=== PATIENT | female | born 1955 | race Caucasian/White ===

== ENCOUNTER 2016-10-25 06:38 | Day surgery (SDC) | payer OTHER ==
[2016-10-24 11:33] VITALS: BMI 35.4
[~2016-10-25 06:38] MED LIST: LACTATED RINGERS 1,000 ML IV SCH
[2016-10-25] MEDS ORDERED: LIDOCAINE 1% 20 ML VIAL (10MG/ML) FOR IV START INTRADERMA ONE (06:41)
[2016-10-25 06:54] VITALS: TEMP 97.3
[2016-10-25 06:55] LABS: Glucose,Whole Blood 107 mg/dL (75-99)
--- NOTE | 2016-10-25 07:38 | P.PCN ---
Date of Procedure: 10/25/16 Procedure(s) Performed: . PROCEDURE 1. Cervical epidural steroid injection under fluoroscopic guidance, C7-T1 2. Cervical epidurogram. PREOPERATIVE DIAGNOSIS: 1- Cervical Degenerative Disc Diseases 2- Cervical radiculopathy., 3-cervical spondylosis with cervical Facet arthropathy without . myelopathy 4- cervical spinal stenosis POSTOPERATIVE DIAGNOSIS: : Same as preoperative diagnosis ANESTHESIA: Local anesthesia with 1% lidocaine and IV sedation with Versed 2 mg and Fentanyl 50 mcg. EBL 0 PROCEDURE INDICATION: The patient with neck pain and radiculitis unresponsive to conservative treatment consents for procedure. PROCEDURE DESCRIPTION / TECHNIQUE: The patient was seen and identified in the preoperative area. Risks, benefits, complications, including but not limited to infections ,bleeding , allergic reactions to the medications ,and not complete pain releife, and alternatives were discussed with the patient, the patient agreed to proceed with the procedure and signed the consent. Patient was taken to the OR and time out was completed. The patient was placed in the prone position on the procedure table. A pillow was placed under the patients chest to increase the cervical interlaminar space. The cervical area was prepped and draped in the usual sterile fashion. Vital signs were closely monitored during the procedure. Conscious sedation was used during the procedure to decrease patients anxiety. Using anterior-posterior fluoroscopy, the C7-T1 interlaminar space was identified and the skin over this site was marked and then infiltrated with 1% lidocaine subcutaneously. Subsequently, a 20-gauge 3-1/2-inch Tuohy epidural needle was inserted and advanced toward the epidural space by means of the hanging-drop technique and guided by AP and lateral fluoroscopy. The correct needle position in the epidural space was verified with the injection of 2 mL of the water soluble contrast dye Isovue-180 and observing an excellent epidurogram with the epidural spread of the dye, after negative aspiration for blood and CSF and in the absence of paresthesias. Again after negative aspiration, mixture containing 20 mg Dexamethasone and 2 ml of preservative- free normal saline injected and a washout of epidurogram was seen. Needle was withdrawn intact, skin was cleansed, and bandages were applied. Complications= none. Disposition= patient was placed in supine position and transferred to the recovery room area in stable condition and there was no evidence of upper or lower extremity motor or sensory deficit after the procedure patient was discharged from recovery room after discharge criteria met and home discharge instructions was given by the staff and patient will follow with the pain clinic in 2-4 weeks
[2016-10-25] MEDS ORDERED: IV FLUID CONTINUATION 1,000 ML IV ONE ×2 (07:47)
[2016-10-25 07:53] VITALS: RESP 18
[2016-10-25 07:59] LABS: Glucose,Whole Blood 118 mg/dL (75-99)
[2016-10-25 08:05] VITALS: BP 135/84; PULSE 72
--- NOTE | 2016-10-25 08:46 | FL ---
EXAMINATION TYPE: FL guided pain mgmt statistic DATE OF EXAM: 10/25/2016 7:41 AM FLUOROSCOPY Fluoroscopy time of 27 seconds was used during cervical epidural injection. 1 image/s document/s th e procedure.
[2016-10-25] MEDS ORDERED: MIDAZOLAM 2 MG/2 ML VIAL ONE (09:19)
[2016-10-25] MEDS ORDERED: DEXAMETHASONE SOD PHOS (MDV) 100 MG/10 ML VIAL ONE (09:19)
[2016-10-25] MEDS ORDERED: fentaNYL (PF) 50 MCG/ML 2 ML AMP ONE (09:19)
== END 2016-10-25 08:12 | disposition home or self-care (01) ==
LOC: ORPAIN 06:38
PROVIDERS: ATTEND Specialist
DX: M50.10 Cervical disc disorder with radiculopathy, unspecified cervical region (principal); M47.22 Other spondylosis with radiculopathy, cervical region; M46.92 Unspecified inflammatory spondylopathy, cervical region; M48.02 Spinal stenosis, cervical region
CPT/HCPCS: 62320; J2250; J3010; J1100; 62321

== ENCOUNTER 2016-11-26 06:27 | Day surgery (SDC) | payer OTHER ==
[2016-11-25 12:06] VITALS: BMI 34.5
[2016-11-26] MEDS ORDERED: LIDOCAINE 1% 20 ML VIAL (10MG/ML) FOR IV START INTRADERMA ONE (06:33)
[2016-11-26 06:41] VITALS: RESP 16; TEMP 97.5
[2016-11-26 06:49] LABS: Glucose,Whole Blood 95 mg/dL (75-99)
[2016-11-26] MEDS ORDERED: DEXAMETHASONE SOD PHOS (MDV) 100 MG/10 ML VIAL ONE (07:10)
[2016-11-26] MEDS ORDERED: fentaNYL (PF) 50 MCG/ML 2 ML AMP ONE (07:10)
[2016-11-26] MEDS ORDERED: MIDAZOLAM 2 MG/2 ML VIAL ONE (07:10)
[2016-11-26] MEDS ORDERED: IOHEXOL 180 MG/ML 1 ML ML ONE (07:10)
--- NOTE | 2016-11-26 07:32 | P.PCN ---
Date of Procedure: 11/26/16 Procedure(s) Performed: . PROCEDURE 1. Cervical epidural steroid injection under fluoroscopic guidance, C6-7 # 3 2. Cervical epidurogram. PREOPERATIVE DIAGNOSIS: 1- Cervical Degenerative Disc Diseases 2- Cervical radiculopathy., 3-cervical spinal stenosis POSTOPERATIVE DIAGNOSIS: : 1- Cervical Degenerative Disc Diseases , 2- Cervical radiculopathy. 3-,cervical spinal stenosis ANESTHESIA: Local anesthesia with 1% lidocaine3 ml and IV sedation with Versed 2 mg and Fentanyl 50 mcg. EBL 0 PROCEDURE INDICATION: The patient with neck pain and radiculitis unresponsive to conservative treatment consents for procedure. PROCEDURE DESCRIPTION / TECHNIQUE: The patient was seen and identified in the preoperative area. Risks, benefits, complications, including but not limited to infections ,bleeding , allergic reactions to the medications ,and not complete pain releife, and alternatives were discussed with the patient, the patient agreed to proceed with the procedure and signed the consent. Patient was taken to the OR and time out was completed. The patient was placed in the prone position on the procedure table. A pillow was placed under the patients chest to increase the cervical interlaminar space. The cervical area was prepped and draped in the usual sterile fashion. Vital signs were closely monitored during the procedure. Conscious sedation was used during the procedure to decrease patients anxiety. Using anterior-posterior fluoroscopy, the C6-7interlaminar space was identified and the skin over this site was marked and then infiltrated with 1% lidocaine subcutaneously. Subsequently, a 20-gauge 3-1/2-inch Tuohy epidural needle was inserted and advanced toward the epidural space by means of the ``hanging-drop technique and guided by AP and lateral fluoroscopy. The correct needle position in the epidural space was verified with the injection of 2 mL of the water soluble contrast dye Isovue-180 and observing an excellent epidurogram with the epidural spread of the dye, after negative aspiration for blood and CSF and in the absence of paresthesias. Again after negative aspiration, mixture containing 20 mg Dexamethasone and 2 ml of preservative-free normal saline injected and a washout of epidurogram was seen. Needle was withdrawn intact, skin was cleansed, and bandages were applied. Complications= none. Disposition= patient was placed in supine position and transferred to the recovery room area in stable condition and there was no evidence of upper or lower extremity motor or sensory deficit after the procedure patient was discharged from recovery room after discharge criteria met and home discharge instructions was given by the staff and patient will follow with spine surgeon for evaluation regarding her neck pain and numbness in the upper extremity, today was the third cervical epidural steroid injection, and patient reported that she continued to have pain, and patient will discuss the surgical options with Dr. Simpson
[2016-11-26 08:00] VITALS: BP 146/82; PULSE 77
[2016-11-26] MEDS ORDERED: IV FLUID CONTINUATION 1,000 ML IV ONE (08:00)
--- NOTE | 2016-11-26 08:16 | FL ---
EXAMINATION TYPE: FL guided pain mgmt statistic DATE OF EXAM: 11/26/2016 7:33 AM HISTORY: Flouroscopy time 7 seconds of fluoroscopy provided. IMPRESSION: 1. Fluoroscopy time.
== END 2016-11-26 08:15 | disposition home or self-care (01) ==
LOC: ORPAIN 06:27
PROVIDERS: ATTEND Specialist
DX: M48.02 Spinal stenosis, cervical region (principal); M50.10 Cervical disc disorder with radiculopathy, unspecified cervical region; F41.9 Anxiety disorder, unspecified; E11.9 Type 2 diabetes mellitus without complications; E03.9 Hypothyroidism, unspecified
CPT/HCPCS: 62321; J2250; Q9965; J3010; J1100

== ENCOUNTER → 2017-11-18 | Outpatient (CLI) | payer OTHER ==
[2017-11-18 19:20] LABS: Cholesterol 152 mg/dL (<200); HDL Cholesterol 67 mg/dL (40-60); LDL Cholesterol,Calculated 70 mg/dL (0-99); Triglycerides 76 mg/dL (<150)
[2017-11-19 04:32] LABS: Hemoglobin A1C 8.9 % (4.0-6.0)
== END | disposition home or self-care (01) ==
LOC: MMGSC 16:15
PROVIDERS: ATTEND Family Medicine
DX: E78.5 Hyperlipidemia, unspecified (principal); E11.9 Type 2 diabetes mellitus without complications
CPT/HCPCS: 36415; 80061; 83036

== ENCOUNTER → 2018-01-19 | Outpatient (CLI) | payer OTHER ==
[2018-01-19 20:22] LABS: Albumin 3.8 g/dL (3.5-5.0); Calcium 9.7 mg/dL (8.4-10.2); Magnesium 1.7 mg/dL (1.6-2.3); Potassium 4.7 mmol/L (3.5-5.1); Total Bilirubin 1.5 mg/dL (0.2-1.3); Total Protein 6.3 g/dL (6.3-8.2)
[2018-01-19 21:15] LABS: Basophils # (A) 0.1 k/uL (0-0.2); Basophils % (A) 1 %; Eosinophils # (A) 0.1 k/uL (0-0.7); Eosinophils % (A) 2 %; HCT 39.2 % (34.0-46.0); HGB 12.4 gm/dL (11.4-16.0); Hypochromasia Slight; Lymphocytes # (A) 1.3 k/uL (1.0-4.8); Lymphocytes % (A) 15 %; MCH 29.8 pg (25.0-35.0); MCHC 31.6 g/dL (31.0-37.0); MCV 94.1 fL (80.0-100.0); Mean Platelet Volume 8.8; Monocytes # (A) 0.3 k/uL (0-1.0); Monocytes % (A) 4 %; Neutrophils # (A) 6.6 k/uL (1.3-7.7); Neutrophils % (A) 78 %; Platelet Count 332 k/uL (150-450); RBC 4.17 m/uL (3.80-5.40); RDW 13.1 % (11.5-15.5); WBC 8.4 k/uL (3.8-10.6)
== END | disposition home or self-care (01) ==
LOC: MMGSC 12:26
PROVIDERS: ATTEND Family Medicine
DX: R11.0 Nausea (principal); R19.4 Change in bowel habit
CPT/HCPCS: 36415; 80053; 82150; 83690; 83735; 85025

== ENCOUNTER → 2018-05-26 | Outpatient (CLI) | payer OTHER ==
--- NOTE | 2018-05-26 09:36 | MR ---
EXAMINATION TYPE: MR knee RT wo con DATE OF EXAM: 05/26/2018 COMPARISON: Outside radiographs of the right knee dated 03/05/2018 HISTORY: Inner right knee pain for 2 years increasing in severity for the last 8-10 months. No prior history of knee surgery TECHNIQUE: Multiplanar, multisequence imaging of the right knee is performed without IV contrast. FINDINGS: MEDIAL MENISCUS: There is a radial tear of the posterior horn of the medial meniscus at its free edge and increased signal throughout the posterior horn extending into the body of the medial meniscus co mpatible with myxoid degeneration. LATERAL MENISCUS: There is a complex tear of the anterior horn of the lateral meniscus with longitudi nal and radial components. There is also associated meniscal extrusion of approximately 3 mm. A for m m parameniscal cyst is seen in association at the inferior aspect of the meniscus. Meniscal femoral l igament appears intact. The posterior horn and anterior root appear intact. CRUCIATE LIGAMENTS: The anterior and posterior cruciate ligaments are intact and unremarkable. COLLATERAL LIGAMENTS: The medial collateral ligament and lateral collateral ligament complex are inta ct. However there is high signal seen both superficial and deep to the both the lateral and medial co llateral ligaments with minimally increased signal of the ligament complexes suggesting superficial b ursitis and low-grade sprain. No discontinuity is seen. EXTENSOR MECHANISM: The quadriceps and patellar tendons are intact however there is multifocal increa sed signal within the patellar tendon at the origin and mid body with overlying soft tissue edema. EFFUSION: No significant suprapatellar joint effusion. POPLITEAL CYST: Very small multiloculated popliteal cyst is present. TRICOMPARTMENT SPACES: There are small tricompartmental marginal osteophytes and joint space narrowin g. CARTILAGE: There is focal undermining of the weightbearing surface of the medial femoral condylar car tilage and partial thickness cartilaginous defect at the medial aspect measuring 1.7 cm x 6 mm with f ocal fissuring. There is generalized thinning and near full-thickness cartilaginous loss of the lateral compartment i ncluding the tibial cartilage and femoral cartilage. Due to a tibial area of full-thickness cartilagi nous loss measuring approximately 4 mm at the medial aspect of the joint space there is a focal area of 5 mm subchondral bone marrow edema. Within the lateral femoral condyle there are also 2 focal area s of bone marrow edema deep to a region of 7 mm a full-thickness cartilaginous loss at the lateral as pect of the joint space. There is full-thickness cartilaginous loss from the patellar apex to the lateral facet measuring 1.6 cm. Focal trochlear groove full-thickness defect measures 6 mm. Throughout the remainder of the mendez lar and trochlear cartilage there is signal heterogeneity indicative of chondromalacia. BONE MARROW SIGNAL: There is bone marrow edema and extensive subchondral cystic change of the medial femoral condyle with a large subchondral cyst measuring up to 2 cm in craniocaudal dimension. No subc hondral collapse or distinct fracture line is seen. Subchondral cystic change is seen of the lateral tibial eminence, lateral tibial plateau and lateral femoral condyle as described above. IMPRESSION: 1. Complex tear of the anterior horn of the lateral meniscus extending into the meniscal body with as sociated 4 mm parameniscal cyst and meniscal extrusion of 3 mm. 2. Small radial tear of the free edge of the posterior horn of the medial meniscus and posterior horn medial meniscus myxoid degeneration. 3. At least moderate tricompartmental chondromalacia with full-thickness cartilaginous defects of the patella, trochlea and lateral compartment and near full-thickness defect of the radial compartment a s described above. 4. Moderate tricompartmental arthrosis with multifocal subchondral cystic change most pronounced in t he far medial tibial plateau with bone marrow edema and extensive subchondral cystic change. 5. Findings suggestive of medial and lateral collateral ligament bursitis and low-grade sprain with a bnormal signal superficial and deep to the ligamentous complexes without discrete tear. 6. Multifocal increased signal within the patellar tendon and overlying subcutaneous soft tissue swel ling also suggesting low-grade injury without tear.
== END | disposition home or self-care (01) ==
LOC: RADMRIMAIN 07:55
PROVIDERS: ATTEND Orthopaedic Surgery
DX: S83.271A Complex tear of lateral meniscus, current injury, right knee, initial encounter (principal); M94.261 Chondromalacia, right knee; M17.11 Unilateral primary osteoarthritis, right knee; M25.861 Other specified joint disorders, right knee

== ENCOUNTER → 2018-07-10 | Outpatient (CLI) | payer OTHER ==
--- NOTE | 2018-07-10 13:18 | MM ---
Reason for exam: screening (asymptomatic). Last mammogram was performed 2 years ago. History: Patient is postmenopausal. Reductions of both breasts, 2011. Physical Findings: A clinical breast exam by your physician is recommended on an annual basis and results should be correlated with mammographic findings. MG 3D Screening Mammo W/Cad Bilateral CC and MLO view(s) were taken. Prior study comparison: July 02, 2016, mammogram, performed at [facility]. May 15, 2015, mammogram, performed at [facility]. There are scattered fibroglandular densities. There is no discrete abnormality. No significant changes when compared with prior studies. ASSESSMENT: Negative, BI-RAD 1 RECOMMENDATION: Routine screening mammogram of both breasts in 1 year.
== END | disposition home or self-care (01) ==
LOC: RADMAMWWP 07:14
PROVIDERS: ATTEND Family Medicine
DX: Z12.31 Encounter for screening mammogram for malignant neoplasm of breast (principal)
CPT/HCPCS: 77063; 77067

== ENCOUNTER → 2018-09-07 | Outpatient (CLI) | payer OTHER ==
[2018-09-07 14:34] LABS: Basophils % (A) 1 %; Eosinophils # (A) 0.2 k/uL (0-0.7); Eosinophils % (A) 2 %; HCT 37.4 % (34.0-46.0); HGB 12.5 gm/dL (11.4-16.0); Lymphocytes # (A) 2.2 k/uL (1.0-4.8); Lymphocytes % (A) 28 %; MCHC 33.4 g/dL (31.0-37.0); MCV 89.8 fL (80.0-100.0); Mean Platelet Volume 7.7; Monocytes # (A) 0.3 k/uL (0-1.0); Monocytes % (A) 4 %; Neutrophils % (A) 63 %; Platelet Count 318 k/uL (150-450); RBC 4.17 m/uL (3.80-5.40); RDW 13.3 % (11.5-15.5); WBC 7.8 k/uL (3.8-10.6)
[2018-09-07 14:48] LABS: Potassium 4.7 mmol/L (3.5-5.1)
== END | disposition home or self-care (01) ==
LOC: LABPAT 13:21
PROVIDERS: ATTEND Orthopaedic Surgery
DX: Z01.812 Encounter for preprocedural laboratory examination (principal); M23.91 Unspecified internal derangement of right knee
CPT/HCPCS: 36415; 80051; 85025

== ENCOUNTER → 2018-09-11 | Day surgery (SDC) | payer OTHER ==
[2018-09-09 11:46] VITALS: BMI 33.6
--- NOTE | 2018-09-10 11:46 | HP ---
HISTORY AND PHYSICAL CHIEF COMPLAINT: Right knee pain. HISTORY OF PRESENT ILLNESS: The patient is a 62-year-old C[employer] who presents with progressive right knee pain and mechanical symptoms for the past several months. She notes it is worsening. It limits her normal function and activities. She has tried injections along with medications with only partial temporary relief. PAST MEDICAL HISTORY: Significant for hypertension, type 2 diabetes, hypercholesterolemia. PAST SURGICAL HISTORY: Significant for cervical fusion, partial thyroidectomy, hysterectomy, cholecystectomy, section, and breast biopsy. CURRENT MEDICATIONS: 1. Lantus. 2. Atorvastatin. 3. Levothyroxine. 4. Losartan. She denies drug allergies. FAMILY HISTORY: Significant for heart disease, cancer. SOCIAL HISTORY: Negative for current tobacco or alcohol use. 16 POINT REVIEW OF SYSTEMS: Otherwise reviewed and is noncontributory. PHYSICAL EXAMINATION: The patient is approximately 5 foot 4, 185 pounds of endomorphic habitus. HEENT exam is nonfocal. Neck is supple. She has painless passive motion of the right hip. Straight leg raise is negative. Active motion right knee -10 to 110 degrees of flexion. She is tender about greater than lateral joint line. She has a mild effusion. Collaterals are stable, Jody is negative, Pham's elicits medial pain. Her distal neurovascular appears intact in the right lower extremity. Previous weightbearing, notch, lateral and Merchant views of the right knee obtained in the office shows moderate lateral and patellofemoral compartment narrowing. MRI report right knee from 05/26/2018 shows medial and lateral meniscal tears along with tricompartmental degenerative changes. IMPRESSION: 1. Internal derangement right knee with symptomatic medial meniscal tear. 2. Right knee osteoarthrosis. RECOMMENDATIONS: I talked to the patient at length regarding her condition and treatment options. At this point, she remains quite symptomatic, having pain and mechanical symptoms despite conservative measures. After thorough discussion, she opts to proceed with surgery. We will plan to proceed with arthroscopic evaluation with possible partial medial and lateral meniscectomy. Risks and benefits were discussed at length in layman's terms. We will likely perform that as an outpatient procedure. MMODL / IJN: [id number] /
[~2018-09-11] MED LIST changes: +DEXAMETHASONE SOD PHOSPHATE 10 MG/ML 1 ML VIAL IV ONE; +EPINEPHrine (PF) 1 ML in SODIUM CHLORIDE 0.9% IRRIGATIO 3,000 ML IRRIGATION ONE; +HYDROcodone/APAP 5-325MG 1 EACH TAB PO ONE; +KETAMINE 10 MG/ML 20 ML VIAL ONE; +KETOROLAC 30 MG/ML 1 ML VIAL ONE; +LACTATED RINGERS 1,000 ML IV ONE; +LIDOCAINE 1% 20 ML VIAL (10MG/ML) FOR IV START INTRADERMA ONE; +LIDOCAINE 1% INJ 10MG/ML (20 ML MDV) ONE; +MIDAZOLAM 2 MG/2 ML VIAL ONE; +PROMETHAZINE INJ 25 MG/ML 1 ML VIAL IVPB ONE; +PROPOFOL 10 MG/ML 20 ML VIAL IV ONE; +ceFAZolin IN SWFI 2 GM/20 ML SYRINGE IVP ONE; +fentaNYL (PF) 50 MCG/ML 2 ML AMP ONE
[2018-09-11] MEDS: ONDANSETRON 4 MG/2 ML VIAL IVP ONE ×2 (10:28→12:49)
[2018-09-11 10:33] LABS: Glucose,Whole Blood 191 mg/dL (75-99)
--- NOTE | 2018-09-11 12:21 | P.OP ---
Date of Procedure: 09/11/18 Preoperative Diagnosis: Right knee internal derangement Postoperative Diagnosis: Right knee posterior medial/posterior lateral meniscal tears, grade 3 chondral injury medial femoral condyle Procedure(s) Performed: Right knee arthroscopic partial medial and lateral meniscectomy/medial femoral chondrectomy Anesthesia: CIPRIANOA Surgeon: Saul Tinoco Estimated Blood Loss (ml): 10 Pathology: none sent Condition: stable Disposition: PACU Indications for Procedure: Patient is a 62-year-old female who presents with progressive right knee pain and mechanical symptoms despite conservative measures. A discussion of the risks and benefits of operative intervention versus continued conservative measures was made with the patient. She opted to proceed with surgery. Operative risks to include infection, neurovascular injury, development of blood clots, possible incomplete resolution symptoms, possible worsening symptoms and need for subsequent procedures was discussed. Informed consent was obtained. Operative Findings: As below Description of Procedure: The patient was brought to the operating room, and after induction of general anesthesia examined the right knee. Collaterals were stable, Jody was negative, and posterior drawer was negative. The right lower extremity was prepped and draped in a normal fashion. A lateral portal was made through a 5 mm vertical skin incision lateral to the patella tendon above the joint line. Diagnostic arthroscopy was performed. A medial portal was made through a similar incision medial to the patella tendon above the joint line. On inspection medial compartment, she was noted to have a complex tear involving the posterior horn of the medial meniscus in the white-white junction. This was debrided back to stable base with straight baskets and a motorized shaver. The edges were contoured. There were grade 3 chondral changes noted diffusely in the medial compartment. There was a loose chondral fragment debrided back to stable base with a motorized shaver. On inspection of the notch, a chronic ACL tear was noted. This was scarred to the posterior cruciate ligament. On inspection of the lateral compartment, a posterior tear was noted in the white- white junction. This was debrided back to stable base with straight baskets and a motorized shaver. Grade 2-3 chondral changes were noted diffusely and lateral compartment. On inspection patellofemoral articulation, there are grade 3-4 chondral changes diffusely. No loose chondral fragments were noted. The gutters were clear of debris. The knee was then thoroughly irrigated. The portals were closed with Steri-Strips. A sterile dressing was applied in addition to a compression stocking. The patient was awoken from general anesthesia and transferred to recovery room in good condition. Blood loss was estimated 10 mL. case were incurred.
[2018-09-11 12:26] VITALS: TEMP 97.7
[2018-09-11 12:42] LABS: Glucose,Whole Blood 187 mg/dL (75-99)
[2018-09-11] MEDS: HYDROmorphone 1 MG/ML 1 ML SYRINGE IVP ONE ×2 (12:55→13:03)
[2018-09-11 13:52] VITALS: RESP 16
[2018-09-11 14:11] VITALS: BP 144/76; PULSE 83
== END | disposition home or self-care (01) ==
LOC: OR 09:25
PROVIDERS: ATTEND Orthopaedic Surgery
DX: S83.241A Other tear of medial meniscus, current injury, right knee, initial encounter (principal); S83.281A Other tear of lateral meniscus, current injury, right knee, initial encounter; S83.31XA Tear of articular cartilage of right knee, current, initial encounter; S83.511A Sprain of anterior cruciate ligament of right knee, initial encounter; X58.XXXA Exposure to other specified factors, initial encounter; I10 Essential (primary) hypertension; E78.5 Hyperlipidemia, unspecified; J45.909 Unspecified asthma, uncomplicated; E07.9 Disorder of thyroid, unspecified; E11.9 Type 2 diabetes mellitus without complications; Z79.4 Long term (current) use of insulin; E78.00 Pure hypercholesterolemia, unspecified; Z79.890 Hormone replacement therapy; Z79.82 Long term (current) use of aspirin; Z79.899 Other long term (current) drug therapy
CPT/HCPCS: 29880; J2250; J1100; J2550; J2405; J0171; J2001; J3010; J1885; J1170; J2704

== ENCOUNTER → 2019-01-08 | Outpatient (CLI) | payer OTHER ==
--- NOTE | 2019-01-08 20:25 | CT ---
EXAMINATION TYPE: CT chest wo con DATE OF EXAM: 01/08/2019 COMPARISON: None HISTORY: cough, SOB CT DLP: 827.1 mGycm. Automated Exposure Control for Dose Reduction was Utilized. TECHNIQUE: CT scan high-resolution of the thorax is performed without IV contrast. FINDINGS: LUNGS: The lungs are grossly clear, there is no concerning parenchymal mass or nodule identified. T here is no pleural effusion or pneumothorax seen. The tracheobronchial tree is patent. There is mild basilar and central bronchiectasis. There is no significant interlobular septal thickening. MEDIASTINUM: Lack of IV contrast is noted to limit evaluation for mediastinal and especially hilar ad enopathy. There are no definitive greater than 1 cm hilar or mediastinal lymph nodes. Trace amount of pericardial fluid seen. Heart size normal. Aorta of normal caliber. OTHER: Previous surgery involving the cervical spine.. IMPRESSION: 1. Mild basilar and central bronchiectasis with no diagnostic evidence of interstitial lung disease.
== END | disposition home or self-care (01) ==
LOC: RADCTMAIN 16:27
PROVIDERS: ATTEND Family Medicine
DX: J47.9 Bronchiectasis, uncomplicated (principal)
CPT/HCPCS: 71250